=== PATIENT | female | born 2000 | race African-American/Black ===

== ENCOUNTER 2020-12-06 00:45 | Emergency (ER) | payer SELFPAY ==
--- NOTE | 2020-12-10 16:18 | EDM.PDOC ---
ED HPI GENERAL MEDICAL PROBLEM - General Chief Complaint: Abdominal Pain Stated Complaint: STOMACH PAIN Time Seen by Provider: 12/06/20 01:35 - History of Present Illness INITIAL COMMENTS - FREE TEXT/NARRATIVE: CHIEF COMPLAINT(S): Abdominal pain HISTORY OF PRESENT ILLNESS: This is a 20-year-old woman without any significant past medical history who presents to the emergency department with chief complaint of abdominal pain. The patient states that she has been getting left lower quadrant abdominal pain for approximately 1 week now. She states that there is no radiation of pain and there is no associated nausea, vomiting, diarrhea, vaginal bleeding, vaginal discharge, hematuria or dysuria. She states that she is not seen her primary care physician for this and she is concerned that she may be . She denies any concerns over STDs or STIs. She denies any fevers or chills and denies a history of ovarian cyst, ovarian torsion, ectopic . She describes the pain as sharp and intermittent r ated 0 out of 10 currently. She denies any aggravating or relieving factors. REVIEW OF SYSTEMS: Constitutional: Denies fever, chills. Eyes: Denies eye pain Ears, Nose, Mouth, & Throat: Denies earache Cardiovascular: Denies chest pain Respiratory: Denies shortness of breath Gastrointestinal: Positive for left lower quadrant abdominal pain denies Nausea, vomiting, diarrhea, hematochezia. Genitourinary: Denies hematuria, dysuria, vaginal bleeding, vaginal discharge Skin:Denies a rash MSK: Denies joint pain Neurological: Denies blurred vision Psychiatric: Denies depression PAST MEDICAL HISTORY: As per history of present illness and as reviewed below otherwise noncontributory. SURGICAL HISTORY: As per history of present illness and as reviewed below otherwise noncontributory. LMP: Does not recall SOCIAL HISTORY: As per history of present illness and as reviewed below otherwise noncontributory. FAMILY HISTORY: As per history of present illness and as reviewed below otherwise noncontributory. EXAMINATION OF ORGAN SYSTEMS/BODY AREAS: Constitutional: Blood pressure was 129/88, heart rate 80, respiratory rate 18 with an oxygen saturation of 96% on room air. Temperature 36.3 General: Overall well-appearing woman who is in no acute distress Psychiatric: Flattened affect otherwise no SI or HI. Eyes: No scleral icterus or conjunctival erythema ENMT: Moist mucous membranes. No pharyngeal erythema Cardiovascular: Regular, rate, and rhythm. No gallops, murmurs, or rubs. Bilateral upper extremity pulses symmetric and intact. No peripheral edema. No JVD. Respiratory: Lungs clear to auscultation bilaterally. No wheezes, rales, or rhonchi. Gastrointestinal: Soft, nondistended, mild tenderness to palpation in the left lower quadrant. No rebound or guarding. Negative Aldana's McBurney's. Normoactive bowel sounds Genitourinary: No suprapubic tenderness no CVA tenderness. Musculoskeletal: Normal range of motion. Skin: No lesions or abrasions. Neurological: Alert, GCS 15 MEDICAL DECISION MAKING AND COURSE IN THE ED WITH INTERPRETATION/REVIEW OF DIAGNOSTIC STUDIES: This is a 20-year-old woman without any significant past medical history who presents to the emergency department with intermittent left lower quadrant pain without any other associated symptoms. At this time we will obtain a urinalysis to evaluate for urinary tract infection versus . The patient is currently not in any pain therefore no pain medication will be administered. I did discuss with her that if the urinalysis and hCG were negative I would like to perform a pelvic ultrasound with RN neon pumper present to evaluate for cervical motion tenderness, discharge, or adnexal tenderness. She was amenable to this plan. Urinalysis was a clean catch and was negative for leukocyte esterase, negative for nitrites, and negative for blood. Interpretation: Negative. Laboratory: hCG is negative. There was a delay in performing the pelvic examination as there was a critical patient that I was attending to. The patient left without completing treatment DISPOSITION: The patient without completing treatment CONDITION: Fair PROCEDURES: None FINAL IMPRESSION(S)/DIAGNOSES: 1. Acute left lower quadrant abdominal pain Rinku Crowell M.D. - Related Data Allergies Allergy/AdvReac Type Severity Reaction Status Date / Time No Known Allergies Allergy Verified 12/06/20 01:45 Home Meds: Home Meds . 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: ED ROS GENERAL - Review of Systems Review Of Systems: See Below ED EXAM, GI/ABD - Physical Exam Exam: See Below Course - Vital Signs Last Recorded V/S: Last Vital Signs Temp 36.3 C 12/06/20 01:30 Pulse 80 12/06/20 01:30 Resp 18 12/06/20 01:30 BP 129/88 12/06/20 01:30 Pulse Ox 96 12/06/20 01:30 - Orders/Labs/Meds Labs: Laboratory Tests 12/06/20 12/06/20 Range/Units 01:25 01:25 Urine Color YELLOW Urine Appearance CLEAR Urine pH 6.0 (5.0-8.0) Ur Specific [place] 1.025 (1.001-1.035) Urine Protein NEGATIVE (NEGATIVE) mg/dL Urine Glucose (UA) NEGATIVE (NEGATIVE) mg/dL Urine Ketones NEGATIVE (NEGATIVE) mg/dL Urine Occult Blood NEGATIVE (NEGATIVE) Urine Nitrite NEGATIVE (NEGATIVE) Urine Bilirubin NEGATIVE (NEGATIVE) Urine Urobilinogen 0.2 (<2.0) EU/dL Ur Leukocyte Esterase NEGATIVE (NEGATIVE) Urine HCG, Qual NEGATIVE (NEGATIVE) Departure - Departure Time of Disposition: 03:04 Disposition: Eloped 07 Clinical Impression: Abdominal pain - Discharge Information *PRESCRIPTION DRUG MONITORING PROGRAM REVIEWED*: No *COPY OF PRESCRIPTION DRUG MONITORING REPORT IN PATIENT EMI: No Instructions: Abdominal Pain, Adult, [id number] Referrals: Zhanna Barth MD [Primary Care Provider] - Forms: ED Department Discharge Sepsis Event Note (ED) - Evaluation Sepsis Screening Result: No Definite Risk
== END 2020-12-06 03:04 | disposition left against medical advice (07) ==
LOC: MW.ED 00:45
DX: R10.9 Unspecified abdominal pain (principal); Z53.21 Procedure and treatment not carried out due to patient leaving prior to being seen by health care provider
CPT/HCPCS: 81003; 81025